=== PATIENT | female | born 2000 | race Caucasian/White ===

== ENCOUNTER 2021-09-05 13:58 | Emergency (ER) | payer OTHER ==
[2021-09-05 14:51] LABS: BASOPHIL 0.2 % (0-2); EOSINOPHIL 0 % (0-5); HCT 39.5 % (37.0-47.0); HGB 13.9 g/dl (12.5-16.0); LYMPHOCYTE 6.5 % (15-48); MCH 29.1 pg (25.0-31.0); MCHC 35.2 g/dL (32.0-36.0); MCV 82.6 fL (78.0-100.0); MONOCYTE 2.4 % (0-12); MPV 10.2 fL (6.0-9.5); NEUTROPHIL 90.4 % (41-80); NRBC 0; PLT 326 K/uL (150-400); RBC 4.78 M/uL (4.20-5.40); RDW 12.4 % (11.5-14.0); WBC 12.8 K/uL (4.0-10.5)
[2021-09-05 15:07] LABS: ALBUMIN 4.1 g/dL (3.4-5.0); BILIRUBIN - TOTAL 0.5 mg/dL (0.2-1.0); CREATININE 0.42 mg/dL (0.51-0.95); GLOBULIN (CALCULATION) 3.9 g/dL; POTASSIUM 3.4 mmol/L (3.5-5.1)
== END 2021-09-05 15:18 | disposition left against medical advice (07) ==
LOC: FER 13:58
PROVIDERS: Nurse Practitioner Family
DX: O99.281 Endocrine, nutritional and metabolic diseases complicating pregnancy, first trimester (principal); E86.0 Dehydration; Z3A.10 10 weeks gestation of pregnancy; Z53.29 Procedure and treatment not carried out because of patient's decision for other reasons
CPT/HCPCS: 36415; 80053; 85025; J7030